=== PATIENT | male | born 1975 | race Two or more races ===

== ENCOUNTER 2017-05-15 10:26 | Emergency (ER) | payer OTHER ==
[2017-05-15 10:42] VITALS: TEMP 98; BMI 31.4
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
[2017-05-15 12:42] VITALS: BP 140/80; PULSE 86
== END 2017-05-15 12:43 | disposition home or self-care (01) ==
LOC: JER 10:26
DX: S00.03XA Contusion of scalp, initial encounter (principal); W22.8XXA Striking against or struck by other objects, initial encounter; Y93.89 Activity, other specified; Y92.018 Other place in single-family (private) house as the place of occurrence of the external cause
CPT/HCPCS: 99281-25

== ENCOUNTER 2021-05-27 13:08 | Emergency (ER) | payer OTHER ==
[2021-05-27 13:41] VITALS: BP 138/92; PULSE 93; TEMP 97.4; BMI 34.7
[2021-05-27] MEDS ORDERED: METHOCARBAMOL 500 MG TABLET PO ONE (13:55)
[2021-05-27] MEDS ORDERED: KETOROLAC TROMETHAMINE 60 MG/2 ML VIAL IM ONE (13:55)
[2021-05-27] MEDS ORDERED: METHOCARBAMOL 500 MG TABLET ONE (13:56)
[2021-05-27] MEDS ORDERED: KETOROLAC TROMETHAMINE 60 MG/2 ML VIAL ONE (13:56)
[2021-05-27] MEDS ORDERED: LIDOCAINE 5% TOPICAL PATCH TP ONE (15:08)
[2021-05-27] MEDS ORDERED: LIDOCAINE 5% TOPICAL PATCH ONE (15:11)
[2021-05-27] MEDS ORDERED: LIDOCAINE PATCH REMOVAL MC SCH (22:00)
== END 2021-05-27 17:14 | disposition home or self-care (01) ==
LOC: JERFT 13:08
PROC: 3E0233Z Introduction of Anti-inflammatory into Muscle, Percutaneous Approach (ICD-10-PCS; principal; 2021-05-27)
DX: M62.830 Muscle spasm of back (principal)
CPT/HCPCS: 72100-TC-FY; 99284-25

== ENCOUNTER 2021-08-24 15:36 | Emergency (ER) | payer OTHER ==
[2021-08-24 15:48] VITALS: BP 138/86; PULSE 79; TEMP 97.8; BMI 34.7
[2021-08-24] MEDS ORDERED: IBUPROFEN 400 MG TABLET (FP) PO ONE ×2 (16:51→17:21)
== END 2021-08-24 17:31 | disposition home or self-care (01) ==
LOC: JER 15:36
DX: S09.90XA Unspecified injury of head, initial encounter (principal); S33.5XXA Sprain of ligaments of lumbar spine, initial encounter; W01.0XXA Fall on same level from slipping, tripping and stumbling without subsequent striking against object, initial encounter
CPT/HCPCS: 70450-TC; 99284-25

== ENCOUNTER 2022-12-07 16:29 | Emergency (ER) | payer OTHER ==
[2022-12-07 16:37] VITALS: BP 159/95; PULSE 75; RESP 18; TEMP 97.2; BMI 34.7
[2022-12-07] MEDS ORDERED: LIDOCAINE 5% TOPICAL PATCH TP ONE (16:56)
[2022-12-07] MEDS ORDERED: KETOROLAC TROMETHAMINE 30 MG/1 ML VIAL IM ONE (16:56)
[2022-12-07] MEDS ORDERED: METHOCARBAMOL 500 MG TABLET PO ONE (16:56)
[2022-12-07] MEDS ORDERED: KETOROLAC TROMETHAMINE 30 MG/1 ML VIAL ONE (16:59)
[2022-12-07] MEDS ORDERED: METHOCARBAMOL 500 MG TABLET ONE (16:59)
[2022-12-07] MEDS ORDERED: LIDOCAINE 5% TOPICAL PATCH ONE (16:59)
[2022-12-07] MEDS ORDERED: LIDOCAINE PATCH REMOVAL MC SCH (22:00)
== END 2022-12-07 18:23 | disposition home or self-care (01) ==
LOC: JERFT 16:29
PROC: 3E0233Z Introduction of Anti-inflammatory into Muscle, Percutaneous Approach (ICD-10-PCS; principal; 2022-12-07)
DX: M54.50 Low back pain, unspecified (principal)
CPT/HCPCS: 99284-25

== ENCOUNTER 2022-12-12 13:22 | Emergency (ER) | payer OTHER ==
[2022-12-12 13:36] VITALS: BP 149/84; PULSE 16; RESP 17; TEMP 98; BMI 36.6
[2022-12-12] MEDS ORDERED: KETOROLAC TROMETHAMINE 30 MG/1 ML VIAL IM ONE (15:33)
[2022-12-12] MEDS ORDERED: KETOROLAC TROMETHAMINE 30 MG/1 ML VIAL ONE (15:37)
== END 2022-12-12 18:08 | disposition home or self-care (01) ==
LOC: JERFT 13:22
PROC: 3E0233Z Introduction of Anti-inflammatory into Muscle, Percutaneous Approach (ICD-10-PCS; principal; 2022-12-12)
DX: M54.50 Low back pain, unspecified (principal); W17.89XA Other fall from one level to another, initial encounter; Y93.9 Activity, unspecified; Y92.009 Unspecified place in unspecified non-institutional (private) residence as the place of occurrence of the external cause
CPT/HCPCS: 72100-TC-FY; 99284-25

== ENCOUNTER 2024-02-26 19:06 | Observation (INO) | payer OTHER ==
[2024-02-26 20:34] LABS: BASO % 0.8 % (0-2.0); EOS % 3.9 % (0-4.5); HEMATOCRIT 43.8 % (35.4-49); HEMOGLOBIN 14.9 GM/dL (11.7-16.9); LYMPH % 25.3 % (8-40); MCH 30.1 pg (25.7-33.7); MCHC 34.1 g/dl (32.0-35.9); MEAN CELL VOLUME 88.3 fl (80-96); MEAN PLT VOLUME 7.3 fl (7.5-11.1); MONO % 7.6 % (3.8-10.2); NEUT % 62.4 % (42.8-82.8); PLATELET COUNT 258 10^3/uL (134-434); RBC 4.96 M/mm3 (4.00-5.60); RDW 13.2 % (11.9-15.9); WHITE BLOOD COUNT 7.1 K/mm3 (4.0-10.0)
[2024-02-26 20:55] LABS: INR 0.92 (0.83-1.09); PROTHROMBIN TIME (PATIENT) 10.6 SEC (9.7-13.0)
[2024-02-26 20:57] LABS: POTASSIUM 3.7 mmol/L (3.5-5.1)
[2024-02-26 20:59] LABS: ACTIVATED PTT 30.5 SECONDS (25.2-36.5); CALCIUM 8.7 mg/dL (8.5-10.1)
[2024-02-26 21:01] LABS: ALBUMIN 3.6 g/dl (3.4-5.0); BLOOD UREA NITROGEN 10.4 mg/dL (7-18)
[2024-02-26 21:04] LABS: BILIRUBIN,TOTAL 0.2 mg/dL (0.2-1); TOT PROT 6.9 g/dl (6.4-8.2)
[2024-02-26 21:50] LABS: HIV INTERPRETATION NEGATIVE (NEGATIVE)
[2024-02-27 03:00] VITALS: BMI 55.0
[2024-02-27 06:16] VITALS: RESP 18
[2024-02-27 06:52] LABS: BASO % 0.6 % (0-2.0); EOS % 3.8 % (0-4.5); HEMATOCRIT 41.4 % (35.4-49); HEMOGLOBIN 14.4 GM/dL (11.7-16.9); LYMPH % 22.1 % (8-40); MCH 30.7 pg (25.7-33.7); MCHC 34.7 g/dl (32.0-35.9); MEAN CELL VOLUME 88.5 fl (80-96); MEAN PLT VOLUME 7.8 fl (7.5-11.1); MONO % 7.6 % (3.8-10.2); NEUT % 65.9 % (42.8-82.8); PLATELET COUNT 234 10^3/uL (134-434); RBC 4.68 M/mm3 (4.00-5.60); RDW 13.5 % (11.9-15.9); WHITE BLOOD COUNT 7.5 K/mm3 (4.0-10.0)
[2024-02-27 07:06] LABS: POTASSIUM 4.2 mmol/L (3.5-5.1)
[2024-02-27 07:11] LABS: CALCIUM 8.5 mg/dL (8.5-10.1)
[2024-02-27 07:12] LABS: ALBUMIN 3.5 g/dl (3.4-5.0); BLOOD UREA NITROGEN 12.1 mg/dL (7-18); MAGNESIUM 1.8 mg/dL (1.8-2.4)
[2024-02-27 07:16] LABS: BILIRUBIN,TOTAL 0.5 mg/dL (0.2-1); CREATININE 0.8 mg/dL (0.55-1.3); PHOSPHOROUS 4.1 mg/dL (2.5-4.9)
[2024-02-27 07:18] LABS: TOT PROT 6.6 g/dl (6.4-8.2)
[2024-02-27 07:20] LABS: CHOLESTEROL 257 mg/dL (50-200); HDL CHOLESTEROL 51 mg/dL (40-60); LDL CHOLESTEROL (ONLY SJRH) 176 mg/dL (5-100)
[2024-02-27] MEDS: ENOXAPARIN NA (PORCINE) 40 MG/0.4 ML DISP.SYRIN SQ SCH (09:35)
[2024-02-27] MEDS ORDERED: ENOXAPARIN NA (PORCINE) 40 MG/0.4 ML DISP.SYRIN SQ SCH (10:00)
[2024-02-27 10:07] LABS: PH,URINE 5.5 (5.0-8.0); URINE APPEARANCE CLEAR; URINE BILIRUBIN NEGATIVE (NEGATIVE); URINE COLOR YELLOW; URINE GLUCOSE (UA) NEGATIVE (NEGATIVE); URINE KETONE NEGATIVE (NEGATIVE); URINE LEUK ESTERASE NEGATIVE (NEGATIVE); URINE NITRITE NEGATIVE (NEGATIVE); URINE PROTEIN NEGATIVE (NEGATIVE); URINE UROBILINOGEN 0.2 mg/dL (0.2-1.0)
[2024-02-27 10:37] LABS: COCAINE, UR NEGATIVE (NEGATIVE); METHADONE, UR NEGATIVE (NEGATIVE); OPIATES, URI NEGATIVE (NEGATIVE); PHENCYCLIDINE,URINE NEGATIVE (NEGATIVE); URINE BARBITURATES NEGATIVE (NEGATIVE)
[2024-02-27 10:44] LABS: URINE AMPHETAMINES NEGATIVE (NEGATIVE); URINE BENZODIAZEPINES NEGATIVE (NEGATIVE)
[2024-02-27 12:49] VITALS: BP 131/85; PULSE 85; TEMP 98.8
== END 2024-02-27 13:17 | disposition home or self-care (01) ==
LOC: JER 19:06 → JERBED 02-27 01:09 → J4W 02-27 02:45
PROVIDERS: ADMIT Internal Medicine; ATTEND Internal Medicine
DX: R42 Dizziness and giddiness (principal); E78.5 Hyperlipidemia, unspecified; Z88.0 Allergy status to penicillin; Z87.891 Personal history of nicotine dependence; Z87.828 Personal history of other (healed) physical injury and trauma; R73.03 Prediabetes
CPT/HCPCS: 0241U-QW; 36415; 70450-TC; 71046-TC-FY; 80053; 80061; 80307; 81003; 82550; 83036; 83735; 84100; 84439; 84443; 84484; 85025; 85610; 85730; 86803; 87389; 93005; 93010; 99285-25; G0378